=== PATIENT | male | born 1995 | race Caucasian/White ===

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

== ENCOUNTER 2020-05-09 21:10 | Emergency (ER) | payer MEDICAID ==
[2020-05-09 21:17] VITALS: BP 188/112
== END 2020-05-09 22:44 | disposition left against medical advice (07) ==
LOC: ER 21:10
DX: Z53.21 Procedure and treatment not carried out due to patient leaving prior to being seen by health care provider (principal)